=== PATIENT | female | born 1970 | race Caucasian/White ===

== ENCOUNTER 2019-12-24 19:06 | Emergency (ER) | payer SELFPAY ==
[~2019-12-24] VITALS: Ht 161.3 cm; Wt 88.5 kg
--- NOTE | 2019-12-24 19:41 | NUR ---
PT BIBSELF AMBULATORY TO ER BED 1 C/O EPISODE OF VOMITING LAST NIGHT AFTER DINNER, PT STATES SHE FELL OFF A CHAIR FRIDAY AND HIT HER HEAD, DENIES KO. PT AOX4 RR EVEN AND UNLABORED. NO SOB NOTED. NO NVD AT THIS TIME. NO ACUTE DISTRESS NOTED. PENDING CT HEAD.
--- NOTE | 2019-12-24 20:10 | NUR ---
pt returned from radiology via [facility]. stable condition.
[2019-12-24 20:59] VITALS: BP 135/68
== END 2019-12-24 21:00 | disposition home or self-care (01) ==
LOC: EDSEX 19:06 → ER 19:06
DX: S09.8XXA Other specified injuries of head, initial encounter (principal); F07.81 Postconcussional syndrome; Z88.2 Allergy status to sulfonamides; Z85.3 Personal history of malignant neoplasm of breast; W07.XXXA Fall from chair, initial encounter; Y93.89 Activity, other specified; Y92.89 Other specified places as the place of occurrence of the external cause; Y99.8 Other external cause status
CPT/HCPCS: 70450-TC

== ENCOUNTER 2024-09-21 16:55 | Emergency (ER) | payer BC, OTHER ==
[~2024-09-21] VITALS: Ht 160 cm; Wt 93.4 kg
[2024-09-21] MEDS ORDERED: ONDANSETRON HCL/PF 4 MG/2 ML VIAL ONE (17:42)
[2024-09-21] MEDS: IV NS 0.9% 1,000 ML BAG IV ONE (18:08)
[2024-09-21] MEDS: ONDANSETRON HCL/PF 4 MG/2 ML VIAL IVP ONE (18:09)
[2024-09-21 18:15] LABS: BASOPHILS % (AUTO) 0.3 % (0.0-2.0); EOSINOPHILS % (AUTO) 0.3 % (0.0-6.0); HEMATOCRIT 44 % (33-45); HEMOGLOBIN 14.9 g/dL (11.5-14.8); LYMPHOCYTES # (AUTO) 0.4 K/uL (0.8-4.8); LYMPHOCYTES % (AUTO) 4.5 % (20.0-44.0); MEAN CORPUSCULAR HEMOGLOBIN 30 PG (26.0-33.0); MEAN CORPUSCULAR HGB CONC 34 g/dl (31.0-36.0); MEAN CORPUSCULAR VOLUME 87 fL (82-100); MONOCYTES # (AUTO) 0.4 K/uL (0.1-1.30); MONOCYTES % (AUTO) 4.2 % (2.0-12.0); NEUTROPHILS % (AUTO) 90.7 % (43.0-81.0); PLATELET COUNT (AUTO) 175 K/uL (150-450); RED BLOOD CELL COUNT(AUTO) 5.04 MIL/uL (4.0-5.2); RED CELL DISTRIBUTION WIDTH 14.2 % (11.5-15.0); WHITE BLOOD COUNT (AUTO) 9.9 K/uL (4.3-11.0)
[2024-09-21 18:29] LABS: ALBUMIN 3.3 g/dL (3.4-5.0); BILIRUBIN,DIRECT 0.1 mg/dL (0.0-0.2); BILIRUBIN,TOTAL 0.4 mg/dL (0.2-1.0); CALCIUM, SERUM 8.6 mg/dL (8.5-10.1); CREATININE 0.9 mg/dL (0.6-1.3); POTASSIUM 3.3 mmol/L (3.5-5.1); TOTAL PROTEIN, SERUM 7.2 g/dL (6.4-8.2)
[2024-09-21] MEDS ORDERED: ONDA4TAB11 PO (19:07)
[2024-09-21] MEDS ORDERED: POTASSIUM CHLORIDE 20 MEQ TAB.PRT.SR PO ONE (19:14)
[2024-09-21] MEDS: POTASSIUM CHLORIDE 20 MEQ TAB.PRT.SR PO ONE (19:15)
[2024-09-21 19:23] VITALS: BP 144/80; TEMP 97.3; O2SAT 98
== END 2024-09-21 19:24 | disposition home or self-care (01) ==
LOC: ER 17:04
DX: R11.2 Nausea with vomiting, unspecified (principal); R19.7 Diarrhea, unspecified; R50.9 Fever, unspecified; Z85.3 Personal history of malignant neoplasm of breast; Z88.2 Allergy status to sulfonamides
CPT/HCPCS: 99285; 96374; 96361; 85025; 80048; 83690; 80076; 36415; J2405; J7030